=== PATIENT | female | born 1970 | race Caucasian/White ===

== ENCOUNTER 2020-11-30 15:11 | Outpatient (CLI) | payer SELFPAY ==
--- NOTE | 2020-11-30 15:12 | MM_ITS ---
WS: [id number] SCREENING DIGITAL MAMMOGRAM WITH CAD HISTORY: SCREENING COMPARISON: 01/20/2011 Bilateral CC and MLO views submitted. Computer aided detection analyzed. Breast composition: There are scattered areas of fibroglandular density. Irregular shaped calcifications near 8:00 in middle depth. There are only 2 calcifications but these are new and the shape is irregular. Suggest additional magnification views at this time. MM/[place] [id number] IMPRESSION: BI-RADS: 0-Incomplete: Need additional imaging evaluation FOLLOW UP: Need Additional Imaging LEFT BREAST: Magnification views of suspicious calcification CC and MLO. True M L. Views
== END 2020-11-30 15:12 | disposition home or self-care (01) ==
LOC: RADSHAW 15:12
PROVIDERS: PCP Family Medicine; Visit Provider Family Medicine
DX: Z12.31 Encounter for screening mammogram for malignant neoplasm of breast (principal); R92.1 Mammographic calcification found on diagnostic imaging of breast
CPT/HCPCS: 77067

== ENCOUNTER 2020-12-06 09:32 | Outpatient (CLI) | payer SELFPAY ==
--- NOTE | 2020-12-06 09:42 | MM_ITS ---
WS: [id number] ADDITIONAL VIEWS LEFT MAMMOGRAM HISTORY: ABNORMAL MAMMOGRAM COMPARISON: None available. Magnification views LEFT breast in CC, MLO projections and true ML submitted. There is a small cluster of calcifications in the medial inferior LEFT breast near 8:00. Calcificatio ns are middle depth. These calcifications are coarse but slightly irregular. No definite soft tissue mass associated with the calcifications. MM/[place] [id number] IMPRESSION: BI-RADS: 4-Suspicious Finding-Biopsy Should Be Considered FOLLOW UP: Biopsy Recommended Stereotactic LEFT breast biopsy recommended of the new suspicious developing ca lcifications at 8:00. Notified Stephany Celaya MD at 12/06/2020 10:24 AM. Discussed with Sophie.
== END 2020-12-06 09:33 | disposition home or self-care (01) ==
LOC: RADSHAW 09:34
PROVIDERS: PCP Family Medicine; Visit Provider Family Medicine
DX: R92.8 Other abnormal and inconclusive findings on diagnostic imaging of breast (principal); R92.1 Mammographic calcification found on diagnostic imaging of breast
CPT/HCPCS: 77065

== ENCOUNTER 2020-12-18 12:32 | Outpatient (CLI) | payer SELFPAY ==
--- NOTE | 2020-12-18 12:43 | MM_ITS ---
WS: [id number] STEREOTACTIC LEFT BREAST BIOPSY WITH VACUUM ASSISTANCE. History: Heterogeneous left breast calcifications. Biopsy recommended for suspicious calcifications. Procedure, risks, and complications were discussed the patient who agreed to proceed. Prior imaging w as reviewed. Cluster of calcifications within the left breast are localized. Stereotactic imaging was performed. P atient was prepped and draped in usual sterile fashion. After 1% lidocaine, calcifications were targe sonali stereotactically in the left breast. Small incision was made. Needle advanced into the cluster of calcifications left breast with imaging demonstrating appropriate position relative to the calcifica tions. Multiple vacuum-assisted core biopsies were obtained. Postprocedure imaging demonstrates calci fications within the biopsy specimen. The biopsy cavity was lavaged. Titanium clip was placed at the biopsy site. Postprocedure imaging dem onstrates clip in good position. No immediate complications. MM/[place] [id number] IMPRESSION: 1. Uncomplicated vacuum-assisted stereotactic biopsy of calcifications in the left breast. 2. PATHOLOGY: A. 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 B. No invasive carcinoma or ductal carcinoma in situ identified. 3. See pathology report for immunohistochemical stains RECOMMEND BREAST SURGERY CONSULTATION FOR CONSIDERATION OF SURGICAL EXCISION
--- NOTE | 2020-12-18 12:43 | MM_ITS ---
WS: [id number] STEREOTACTIC LEFT BREAST BIOPSY WITH VACUUM ASSISTANCE. History: Heterogeneous left breast calcifications. Biopsy recommended for suspicious calcifications. Procedure, risks, and complications were discussed the patient who agreed to proceed. Prior imaging w as reviewed. Cluster of calcifications within the left breast are localized. Stereotactic imaging was performed. P atient was prepped and draped in usual sterile fashion. After 1% lidocaine, calcifications were targe sonali stereotactically in the left breast. Small incision was made. Needle advanced into the cluster of calcifications left breast with imaging demonstrating appropriate position relative to the calcifica tions. Multiple vacuum-assisted core biopsies were obtained. Postprocedure imaging demonstrates calci fications within the biopsy specimen. The biopsy cavity was lavaged. Titanium clip was placed at the biopsy site. Postprocedure imaging dem onstrates clip in good position. No immediate complications. MM/MM surgical specimen LT IMPRESSION: 1. Uncomplicated vacuum-assisted stereotactic biopsy of calcifications in the left breast. 2. PATHOLOGY: A. 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 B. No invasive carcinoma or ductal carcinoma in situ identified. 3. See pathology report for immunohistochemical stains RECOMMEND BREAST SURGERY CONSULTATION FOR CONSIDERATION OF SURGICAL EXCISION
--- NOTE | 2020-12-18 13:00 | MM_ITS ---
WS: [id number] STEREOTACTIC LEFT BREAST BIOPSY WITH VACUUM ASSISTANCE. History: Heterogeneous left breast calcifications. Biopsy recommended for suspicious calcifications. Procedure, risks, and complications were discussed the patient who agreed to proceed. Prior imaging w as reviewed. Cluster of calcifications within the left breast are localized. Stereotactic imaging was performed. P atient was prepped and draped in usual sterile fashion. After 1% lidocaine, calcifications were targe soanli stereotactically in the left breast. Small incision was made. Needle advanced into the cluster of calcifications left breast with imaging demonstrating appropriate position relative to the calcifica tions. Multiple vacuum-assisted core biopsies were obtained. Postprocedure imaging demonstrates calci fications within the biopsy specimen. The biopsy cavity was lavaged. Titanium clip was placed at the biopsy site. Postprocedure imaging dem onstrates clip in good position. No immediate complications. MM/[place] vac assist [id number] IMPRESSION: 1. Uncomplicated vacuum-assisted stereotactic biopsy of calcifications in the left breast. 2. PATHOLOGY: A. 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 B. No invasive carcinoma or ductal carcinoma in situ identified. 3. See pathology report for immunohistochemical stains RECOMMEND BREAST SURGERY CONSULTATION FOR CONSIDERATION OF SURGICAL EXCISION
== END 2020-12-18 12:33 | disposition home or self-care (01) ==
LOC: RADSHAW 12:34
PROVIDERS: PCP Family Medicine; Visit Provider Obstetrics & Gynecology
DX: R92.1 Mammographic calcification found on diagnostic imaging of breast (principal)
CPT/HCPCS: 19081; 77065; 88305

== ENCOUNTER 2021-02-14 07:30 | Day surgery (SDC) | payer SELFPAY ==
[2021-02-13 15:04] VITALS: BMI 45.1
[2021-02-14 07:38] VITALS: BP 160/108; PULSE 83; RESP 16; TEMP 36.5; O2SAT 95
--- NOTE | 2021-02-14 08:49 | MM_ITS ---
WS: [id number] STEREOTACTIC LEFT BREAST NEEDLE LOCALIZATION TECHNIQUE: The procedure including risks, benefits, and complications were discussed with the patient who agreed to proceed. A timeout was performed. Patient was prepped and draped in usual sterile fash ion. After 1% lidocaine, using stereotactic guidance, a 7 cm Kopans needle was advanced Into the prior biopsy cavity. Wire tip is approximately 12 mm from the biopsy marker on the MLO view in the biopsy cavity. No immediate complications. Surgical specimen with wire intact. Biopsy clip is not present. Additional samples were obtained. Bio psy clip is not visualized. MM/[place] [id number] Pathology: Specimen A, left breast lesion: Benign breast tissue with focal fibrocystic tiffani nges including cyst formation. No malignancy or microcalcifications identified Specimen B, left breast lesion: Benign breast tissue with ductal ectasia and cy st formation No malignancy, masses, or microcalcifications IMPRESSION: 1. Pathology demonstrates benign breast tissue with focal fibrocystic changes. No malignancy or microcalcifications identified. BI-RADS 2 BENIGN FOLLOW UP: RECOMMEND 6 MONTH LEFT DIAGNOSTIC MAMMOGRAPHY POST EXCISION
--- NOTE | 2021-02-14 08:49 | MM_ITS ---
WS: [id number] STEREOTACTIC LEFT BREAST NEEDLE LOCALIZATION TECHNIQUE: The procedure including risks, benefits, and complications were discussed with the patient who agreed to proceed. A timeout was performed. Patient was prepped and draped in usual sterile fash ion. After 1% lidocaine, using stereotactic guidance, a 7 cm Kopans needle was advanced Into the prior biopsy cavity. Wire tip is approximately 12 mm from the biopsy marker on the MLO view in the biopsy cavity. No immediate complications. Surgical specimen with wire intact. Biopsy clip is not present. Additional samples were obtained. Bio psy clip is not visualized. MM/MM surgical specimen LT Pathology: Specimen A, left breast lesion: Benign breast tissue with focal fibrocystic tiffani nges including cyst formation. No malignancy or microcalcifications identified Specimen B, left breast lesion: Benign breast tissue with ductal ectasia and cy st formation No malignancy, masses, or microcalcifications IMPRESSION: 1. Pathology demonstrates benign breast tissue with focal fibrocystic changes. No malignancy or microcalcifications identified. BI-RADS 2 BENIGN FOLLOW UP: RECOMMEND 6 MONTH LEFT DIAGNOSTIC MAMMOGRAPHY POST EXCISION
--- NOTE | 2021-02-14 08:49 | MM_ITS ---
WS: [id number] STEREOTACTIC LEFT BREAST NEEDLE LOCALIZATION TECHNIQUE: The procedure including risks, benefits, and complications were discussed with the patient who agreed to proceed. A timeout was performed. Patient was prepped and draped in usual sterile fash ion. After 1% lidocaine, using stereotactic guidance, a 7 cm Kopans needle was advanced Into the prior biopsy cavity. Wire tip is approximately 12 mm from the biopsy marker on the MLO view in the biopsy cavity. No immediate complications. Surgical specimen with wire intact. Biopsy clip is not present. Additional samples were obtained. Bio psy clip is not visualized. MM/[place] [id number] Pathology: Specimen A, left breast lesion: Benign breast tissue with focal fibrocystic tiffani nges including cyst formation. No malignancy or microcalcifications identified Specimen B, left breast lesion: Benign breast tissue with ductal ectasia and cy st formation No malignancy, masses, or microcalcifications IMPRESSION: 1. Pathology demonstrates benign breast tissue with focal fibrocystic changes. No malignancy or microcalcifications identified. BI-RADS 2 BENIGN FOLLOW UP: RECOMMEND 6 MONTH LEFT DIAGNOSTIC MAMMOGRAPHY POST EXCISION
--- NOTE | 2021-02-14 08:54 | SUR.PREOP ---
patient taken to mammo for needle loc
[2021-02-14] MEDS: sodium chloride 0.9% 500 ML 999 ML IV (10:43)
--- NOTE | 2021-02-14 10:46 | P.ANESASSM_ITS ---
Pre-Anesthetic Assessment Pre-Anesthetic Assessment: Height/Weight: Height 1.54 m Weight 106.594 kg Temp Pulse Resp BP Pulse Ox 97.7 F 83 16 160/108 95 02/14/21 07:38 02/14/21 07:38 02/14/21 07:38 02/14/21 07:38 02/14/21 07:38 Proposed Procedure: Operation Date: 02/14/21 10:30 Proposed Procedures p Lumpectomy(Left) - Natan Winkler MD s Breast Biopsy Needle Localization(Left) - Natan Winkler MD Was Beta Lino taken within 24 hours: N/A Was Clonidine taken within 24 hours: N/A Last intake: Intake Last Liquid Date 02/14/21 Last Liquid Time 06:00 Last Solid Date 02/13/21 Last Solid Time 22:00 Social: Social History: No alcohol and No tobacco Exam: Pre-Anes Outpt Exam: alert, oriented x 3, clear to auscultation bilaterally and regular rate & rhythm Airway: Submandibular: WNL Cervical ROM: WNL MP: 2 Dentition: Full Metabolic: Metabolic: Morbid obesity and Thyroid Anesthetic Plan: ASA status: 2 Anesthesia: MAC Risk of > 500 ml blood loss (7ml/kg in children): No Meds/Allergies Current Medications: Current Medications Generic Name Dose Route Start Last Admin Trade Name Freq PRN Reason Stop Dose Admin Sodium Chloride 500 mls @ 999 mls /hr 02/14/21 08:43 02/14/21 10:43 Sodium Chloride 0.9% IV 999 mls/hr .Q31M PRN Administration HYPOTENSION PFSH Anesthesia PFSH: Medical History (Updated 11/22/20 @ 16:55 by Eric Cash MD) Chronic back pain Hypothyroidism Lichen sclerosus Obesity Surgical History (Updated 11/22/20 @ 16:37 by Eric Cash MD) H/O section (01/1985) H/O tubal ligation (1989) Status post hysteroscopic polypectomy (04/01/11) [place] Cash [place] [facility] [place]. Family History (Updated 11/22/20 @ 16:37 by Eric Cash MD) Grandmother Hypertension Maternal Social History (Updated 01/25/21 @ 17:06 by Eric Cash MD) Smoking and tobacco status: former smoker Quit status (tobacco): has quit using tobacco Year quit tobacco: 2004 Former quit date comment: Most smoked 1/2 PPD. Started smoking at age 13 Alcohol intake: never Data Anesthesia Cardiac Studies: No Data to Display
--- NOTE | 2021-02-14 10:49 | PC.NURSE ---
Curly ARECHIGA from Outpatient Surgery hand patient off to this nurse for Stereotactic Needle Localization in Mammography. Patient completed Stereotactic needle loc in Mammography. Pt tolerated well with no complications. After procedure was done pt was monitored and transferred to [facility] to ride in ambulance. This nurse monitored patient from mammography to Outpt Surgery. Blood pressure was taken in Ambulance and blood pressure went down from 150/80 to 120/70. Pt rode in ambulance with no complications. Patient transferred to surgical bed with no complications and gown was placed on pt without left extremity/breast movement. This nurse handed patient and paperwork off to Surgery Nurse Curly. Pt had no further needs at that time, and was stable and calm. Aleyda ARECHIGA
--- NOTE | 2021-02-14 11:47 | W.PM.OPSUD ---
Surgery/Procedure H&P Update DATE OF PROCEDURE: February 14, 2021 DATE H&P PERFORMED: 01/22/21 H&P UPDATE INFORMATION: No changes to prior documentation PLANNED PROCEDURE: Operation Date: 02/14/21 10:30 Proposed Procedures p Lumpectomy(Left) - Natan Winkler MD s Breast Biopsy Needle Localization(Left) - Natan Winkler MD
--- NOTE | 2021-02-14 12:53 | P.OP_ITS ---
Operative Report Date of procedure: February 14, 2021 Pre-op Diagnosis: Papillary lesion of the left breast. Post-op diagnosis: same Procedure Done: Left breast lumpectomy following preoperative needle localization. Specimens removed/disposition: 1. Left breast lumpectomy specimen containing localization wire. 2. Posteroinferior edge of biopsy cavity. Anesthesia: MAC Estimated blood loss (mL): 5 Complications: None. Condition: stable Disposition: observation Procedure: The patient was brought to the operating room and was placed in a supine position on the operating room table after undergoing preoperative needle localization in the radiology department. A monitored anesthetic was induced. The left breast was prepped and draped in a sterile fashion, taking care not to disturb the localization wire. A combination of 1% lidocaine with 1 to 100,000 parts epinephrine and 0.5% bupivacaine was used for local anesthesia throughout the procedure. A transverse incision was carried out in the medial aspect of the left breast. The skin was undermined to the insertion point of the wire which was in the upper inner quadrant of the breast. The wire was brought into the incision and then dissection was carried out along the wire until the hub of the localization wire was identified. The localization wire and surrounding breast tissue were grasped with an Allis clamp and a pair of Metzenbaum scissors were used to remove the tissue around the tip of the wire. The specimen was sent to radiology but upon reviewing the image, the biopsy clip did not appear to be located within the specimen. In talking to Dr. Farias from radiology, he indicated that the biopsy clip was about 1.5 cm posterior and inferior to the tip of the wire at the time of the localization procedure. In looking post eriorly and inferiorly I'm fairly convinced we saw the small biopsy cavity/tract that remained. This was grasped with an Allis clamp and a reasonable amount of tissue was excised encompassing this area, essentially removing the posteroinferior edge of the previous biopsy cavity. No other abnormalities were seen or palpated anywhere in the wound. I figured that if the biopsy clip was not in the second specimen, we would probably have to go to further lengths to relocalize this in order to get it out. The wound was irrigated with saline. The skin was reapproximated using a running subcuticular suture of 4-0 Vicryl. Benzoin and Steri-Strips were placed over the incision and a sterile bandage followed. The patient was taken to the recovery area in stable condition postoperatively.
[2021-02-14 13:00] VITALS: BP 90/72; PULSE 92; RESP 16; TEMP 36.6; O2SAT 93
[2021-02-14 13:05] VITALS: BP 121/76; PULSE 84; RESP 18; O2SAT 98
[2021-02-14 13:10] VITALS: BP 122/77; PULSE 82; RESP 20; O2SAT 98
[2021-02-14 13:15] VITALS: PULSE 75; RESP 16; TEMP 36.7; O2SAT 96
[2021-02-14 13:33] VITALS: BP 119/81; PULSE 81; RESP 16; TEMP 36.7; O2SAT 97
--- NOTE | 2021-02-14 17:18 | ANE.PACU2 ---
Inpatient post-anesthesia follow up: Airway intact: Yes Vital signs: Temperature 98.0 F Pulse Rate 81 Respiratory Rate 16 Blood Pressure 119/81 Pulse Oximetry 97 Oxygen Delivery Me thod Room Air Oxygen Flow Rate Fraction of Inspir ed Oxygen Hydration adequate: Yes Nausea and vomiting: No Pain level: 1 Mental status: Baseline
== END 2021-02-14 14:20 | disposition home or self-care (01) ==
PROVIDERS: PCP Family Medicine; Visit Provider Surgery
PROC: (CPT 19301; principal; 2021-02-14 10:30)
PROC: (CPT 19301; 2021-02-14 10:30)
DX: N64.9 Disorder of breast, unspecified (principal); E66.01 Morbid (severe) obesity due to excess calories; Z68.42 Body mass index [BMI] 45.0-49.9, adult; E03.9 Hypothyroidism, unspecified; E66.9 Obesity, unspecified; Z87.891 Personal history of nicotine dependence
CPT/HCPCS: 19301; 12345; 19283; 77065; 88305; J0690; J2250; J2405; J2704; J3010; J3490; J7040

== ENCOUNTER 2021-05-09 08:02 | Outpatient (CLI) | payer SELFPAY ==
--- NOTE | 2021-05-09 08:15 | MM_ITS ---
WS: [id number] LEFT DIGITAL MAMMOGRAPHY WITH CAD CLINICAL INFORMATION: S/P BIOPSY COMPARISON: February 14, 2021 TECHNIQUE: 3 views of the left breast were obtained. FINDINGS: Scattered fibroglandular densities of the left breast. Recent interval postoperative changes left lum pectomy. Postoperative changes along the surgical corridor with parenchymal scarring. Previous biopsy marker along the surgical tract. No residual or new calcifications. No suspicious findings. No suspicious focal mass, asymmetry, calcifications, or architectural distortion. No evidence of juanjo gnancy. MM/[place] [id number] IMPRESSION: BI-RADS: 2-Benign FOLLOW UP: 1 Year Follow-up Recommend return to annual diagnostic mammography.
== END 2021-05-09 08:03 | disposition home or self-care (01) ==
LOC: RADSHAW 08:08
PROVIDERS: PCP Family Medicine; Visit Provider Surgery
DX: Z98.890 Other specified postprocedural states (principal)
CPT/HCPCS: 77065

== ENCOUNTER 2021-12-20 13:01 | Outpatient (CLI) | payer SELFPAY ==
--- NOTE | 2021-12-20 13:08 | MM_ITS ---
WS: [id number] BILATERAL 3D TOMOSYNTHESIS DIGITAL SCREENING MAMMOGRAPHY WITH CAD CLINICAL INFORMATION: SCREENING HISTORY: Screening mammogram. No current complaints. COMPARISON: May 09, 2021 February 14, 2021 TECHNIQUE: Bilateral CC and MLO views. FINDINGS: Scattered fibroglandular densities bilaterally. Stereotactic biopsy LEFT breast with biopsy clip. Pos toperative changes LEFT lumpectomy with parenchymal scarring. Incidental intramammary lymph node uppe r outer RIGHT breast was present previously. No suspicious focal mass, asymmetry, calcifications, or architectural distortion. No evidence of malignancy. MM/[place] [id number] IMPRESSION: BI-RADS: 2-Benign FOLLOW UP: 1 Year Follow-up Recommend return to annual screening mammography.
== END 2021-12-20 13:02 | disposition home or self-care (01) ==
PROVIDERS: PCP Surgery; Visit Provider Family Medicine
DX: Z12.31 Encounter for screening mammogram for malignant neoplasm of breast (principal)
CPT/HCPCS: 77063; 77067

== ENCOUNTER 2022-12-22 10:06 | Outpatient (CLI) | payer OTHER, SELFPAY ==
--- NOTE | 2022-12-22 10:12 | MM_ITS ---
WS: [id number] BILATERAL SCREENING DIGITAL TOMOSYNTHESIS MAMMOGRAM WITH CAD HISTORY: SCREENING COMPARISON: 12/20/2021, 05/09/2021, 11/30/2020 Bilateral CC and MLO views with tomosynthesis and synthetic mammography submitted. Computer aided det ection analyzed. Breast composition: There are scattered areas of fibroglandular density. No suspicious masses, microc alcifications or architectural distortion. Benign calcifications in each breast. Prior biopsy clip me dial inferior LEFT breast. MM/[place] [id number] IMPRESSION: BI-RADS: 2-Benign FOLLOW UP: 1 Year Follow-up
== END 2022-12-22 10:07 | disposition home or self-care (01) ==
LOC: RAD 10:09
PROVIDERS: PCP Surgery; Visit Provider Family Medicine
DX: Z12.31 Encounter for screening mammogram for malignant neoplasm of breast (principal)
CPT/HCPCS: 77063; 77067

== ENCOUNTER 2025-01-09 08:11 | Outpatient (CLI) | payer OTHER, SELFPAY ==
--- NOTE | 2025-01-09 08:22 | MM_ITS ---
WS: [id number] SCREENING DIGITAL BREAST TOMOSYNTHESIS MAMMOGRAM WITH CAD HISTORY: SCREENING COMPARISON: 12/20/2021, 12/22/2022, 11/30/2020 Bilateral CC and MLO with tomosynthesis and synthetic mammography submitted. Computer aided detection analyzed. Breast composition: There are scattered areas of fibroglandular density. Well- circumscribed high density mass RIGHT breast at 9:00 towards a posterior depth. Mass measures 6 x 7 x 5 mm and has been present on prior exams but is increased slightly in size. Additional bilateral scattered calcifications. Prior biopsy clip in the medial LEFT breast. MM/MM scr BI tomosynthesis [id number] IMPRESSION: BI-RADS: 0 - Incomplete: Need additional imaging evaluation. FOLLOW UP: Need Additional Imaging Recommendation: RIGHT breast ultrasound, limited. 6 x 7 x 5 mm mass RIGHT breas t at 9:00.
== END 2025-01-09 08:12 | disposition home or self-care (01) ==
PROVIDERS: PCP Surgery; Visit Provider Family Medicine
DX: Z12.31 Encounter for screening mammogram for malignant neoplasm of breast (principal); R92.323 Mammographic fibroglandular density, bilateral breasts; N63.15 Unspecified lump in the right breast, overlapping quadrants; R92.1 Mammographic calcification found on diagnostic imaging of breast
CPT/HCPCS: 77063; 77067

== ENCOUNTER 2025-02-20 09:39 | Outpatient (CLI) | payer SELFPAY ==
--- NOTE | 2025-02-20 09:47 | US_ITS ---
WS: [id number] ULTRASOUND RIGHT BREAST HISTORY: ABNORMAL INCONCLUSIVE FINDINGS ON BREAST IMAGING COMPARISON: Mammogram 01/09/2025, 12/22/2022 TECHNIQUE: 2-D and Doppler. Well-circumscribed low-attenuation mass RIGHT breast at 9:00, 7 cm the nipple measures 0.7 x 0.4 x 0.4 cm. No increased vascularity. This is not a simple cyst but it does appear benign. Due to very slight increase in size on mammography 6- month follow-up is recommended. US/US breast RT limited* [id number] IMPRESSION: BI-RADS: 3- Probably Benign FOLLOW-UP: 6 Month Follow-up Follow-up ultrasound RIGHT breast in 6 months at 9:00. Favor benign slightly co mplex cyst or lymph node.
== END 2025-02-20 09:40 | disposition home or self-care (01) ==
LOC: RAD 09:43
PROVIDERS: PCP Surgery; Visit Provider Family Medicine
DX: R92.8 Other abnormal and inconclusive findings on diagnostic imaging of breast (principal); N63.15 Unspecified lump in the right breast, overlapping quadrants
CPT/HCPCS: 76642

== ENCOUNTER 2025-07-10 09:36 | Outpatient (CLI) | payer SELFPAY ==
--- NOTE | 2025-07-10 09:50 | US_ITS ---
WS: [id number] ULTRASOUND RIGHT BREAST, limited HISTORY: BREAST LUMP OR MASS R BREAST COMPARISON: 02/20/2025, 01/09/2025, 12/20/2021 TECHNIQUE: 2-D and Doppler. There is follow-up ultrasound is being performed at less than the recommended time of 6 months. There has been no clinical interval change. Hypoechoic mass is reidentified 9:00, 7 cm the nipple measuring 0.5 x 0.6 x 0.4 cm with no increase in size. No increased vascularity. US/US breast RT limited* [id number] IMPRESSION: BI-RADS: 3- Probably Benign FOLLOW-UP: 6 Month Follow-up This follow-up was performed prior to the 6-month interval that is recommended to assess for change. Exam was performed at the request of the patient. Recommend additional 6-month follow-up. This follow-up can be done at the time of the annual mammogram which should be in December 2025.
== END 2025-07-10 09:37 | disposition home or self-care (01) ==
LOC: RAD 09:40
PROVIDERS: PCP Nurse Practitioner Family; Visit Provider Nurse Practitioner Family
DX: N63.10 Unspecified lump in the right breast, unspecified quadrant (principal); R92.8 Other abnormal and inconclusive findings on diagnostic imaging of breast
CPT/HCPCS: 76642